=== PATIENT | female | born 1975 | race Caucasian/White ===

== ENCOUNTER 2021-06-20 00:13 | Emergency (ER) | payer OTHER ==
[2021-06-20 01:17] LABS: BASOPHIL 0.7 % (0-2); EOSINOPHIL 4.3 % (0-5); HCT 38.5 % (37.0-47.0); HGB 13.1 g/dl (12.5-16.0); LYMPHOCYTE 32.4 % (15-48); MCH 32.5 pg (25.0-31.0); MCV 95.5 fL (78.0-100.0); MONOCYTE 5.6 % (0-12); MPV 10.1 fL (6.0-9.5); NEUTROPHIL 56.5 % (41-80); NRBC 0; PLT 311 K/uL (150-400); RBC 4.03 M/uL (4.20-5.40); RDW 13.5 % (11.5-14.0); WBC 10.9 K/uL (4.0-10.5)
[2021-06-20 01:39] LABS: ALBUMIN 3.4 g/dL (3.4-5.0); BILIRUBIN - TOTAL 0.3 mg/dL (0.2-1.0); BUN/CREAT RATIO (CALC) 13.1 RATIO; CREATININE 0.61 mg/dL (0.51-0.95); GLOBULIN (CALCULATION) 3.3 g/dL; POTASSIUM 4.5 mmol/L (3.5-5.1); TOTAL PROTEIN 6.7 g/dL (6.4-8.2)
[2021-06-20 01:43] LABS: LACTIC ACID 1.4 mmol/L (0.4-1.9)
== END 2021-06-20 02:10 | disposition home or self-care (01) ==
LOC: FER 00:13
PROVIDERS: Emergency Medicine
DX: T83.098A Other mechanical complication of other urinary catheter, initial encounter (principal); F17.200 Nicotine dependence, unspecified, uncomplicated; Z88.2 Allergy status to sulfonamides; Y84.6 Urinary catheterization as the cause of abnormal reaction of the patient, or of later complication, without mention of misadventure at the time of the procedure
CPT/HCPCS: 36415; 80053; 83605; 84145; 85025; 96374; J1170

== ENCOUNTER 2021-07-07 14:32 | Emergency (ER) | payer OTHER ==
[2021-07-07 15:06] LABS: BILIRUBIN NEGATIVE (NEGATIVE); BLOOD NEGATIVE Ery/uL (NEGATIVE); CLARITY CLEAR (CLEAR); COLOR YELLOW (YELLOW); GLUCOSE (U) NORMAL (NORMAL); LEUKOCYTES NEGATIVE Leu/uL (NEGATIVE); NITRITE NEGATIVE (NEGATIVE); PROTEIN NEGATIVE (NEGATIVE); SPECIFIC GRAVITY <=1.005 (1.001-1.030); UROBILINOGEN 0.2 mg/dL (0.2-1.0)
[2021-07-07 17:29] LABS: BASOPHIL 0.4 % (0-2); HCT 37.1 % (37.0-47.0); HGB 12.4 g/dl (12.5-16.0); LYMPHOCYTE 30.4 % (15-48); MCH 32.5 pg (25.0-31.0); MCHC 33.4 g/dL (32.0-36.0); MCV 97.4 fL (78.0-100.0); MONOCYTE 4.2 % (0-12); MPV 10.7 fL (6.0-9.5); NEUTROPHIL 61.6 % (41-80); NRBC 0; RBC 3.81 M/uL (4.20-5.40); RDW 13.4 % (11.5-14.0); WBC 9.4 K/uL (4.0-10.5)
[2021-07-07 17:47] LABS: BUN/CREAT RATIO (CALC) 14.8 RATIO; CREATININE 0.54 mg/dL (0.51-0.95); POTASSIUM 3.7 mmol/L (3.5-5.1)
[2021-07-07 17:56] LABS: PLT 318 K/uL (150-400)
[2021-07-07] MEDS ORDERED: PYRIDIUM100 MG PO (20:10)
[2021-07-07] MEDS ORDERED: MACROBID100 MG PO (20:10)
== END 2021-07-07 20:21 | disposition home or self-care (01) ==
LOC: FER 14:32
PROVIDERS: Emergency Medicine; Nurse Practitioner Family
DX: R30.0 Dysuria (principal); Z88.2 Allergy status to sulfonamides
CPT/HCPCS: 36415; 80048; 81001; 85025; Q9967